=== PATIENT | male | born 1985 | race Native Hawaiian/Other Pacific Islander ===

== ENCOUNTER 2018-11-17 10:39 | Outpatient (CLI) | payer MEDICAID, SELFPAY ==
--- NOTE | 2018-11-17 10:45 | DI.RAD_ITS ---
SYMPTOMS/DIAGNOSIS: LT KNEE PAIN FOLLOWING INJURY 2 MONTHS AGO LEFT KNEE: Three views. No acute or healing fracture or dislocation is seen. There is a small suprapatellar joint effusion. IMPRESSION: No acute or healing fracture or dislocation.
== END 2018-11-17 10:59 ==
PROVIDERS: PCP Family Medicine; Visit Provider Physician Assistant
DX: M25.562 Pain in left knee (principal); M25.462 Effusion, left knee
CPT/HCPCS: 73562

== ENCOUNTER 2019-02-11 17:51 | Outpatient (REF) | payer MEDICAID, SELFPAY ==
[2019-02-11 19:42] LABS: ALT 354 U/L (16-63); AST 133 U/L (15-37); Alkaline Phosphatase 132 U/L (46-116); Anion Gap 12.1 mmol/L (3-11); BUN 12 mg/dL (7-18); Bilirubin, Total 0.5 mg/dL (0.2-1.0); CO2 24.9 mmol/L (21.0-32.0); CREATININE 1.23 mg/dL (0.70-1.30); Calcium 8.9 mg/dL (8.5-10.1); Calculated LDL 94 mg/dL; Chloride 105 mmol/L (98-107); Cholesterol 174 mg/dL (50-200); Glucose 143 mg/dL (70-100); HDL Cholesterol 26 mg/dL (40-60); Potassium 3.8 mmol/L (3.5-5.1); Sodium 142 mmol/L (136-145); Total Protein 7.6 g/dL (6.4-8.2); Triglyceride 272 mg/dL (30-150)
[2019-02-11 20:28] LABS: Hemoglobin A1C 7.1 % (4.5-6.2)
== END 2019-02-11 18:11 ==
LOC: NCHCN 17:51
PROVIDERS: Visit Provider Family Medicine
DX: R73.9 Hyperglycemia, unspecified (principal); Z68.41 Body mass index [BMI] 40.0-44.9, adult
CPT/HCPCS: 80053; 80061; 83036

== ENCOUNTER 2019-04-01 07:10 | Emergency (ER) | payer MEDICAID, SELFPAY ==
[2019-04-01 07:15] VITALS: BP 125/69; PULSE 53; RESP 16; TEMP 36.4; O2SAT 97
--- NOTE | 2019-04-01 07:54 | ED.GENADUL_ITS ---
Discharge Plan Disposition Patient Disposition: HOME Condition: Stable Discharge Details Chief Complaint: Laceration Clinical Impression: Laceration of hand, right Primary Care Provider: Daniele De La Rosa ED Provider: Marcelo Martínez Home Meds and New Rx's Prescriptions: No Action metformin 500 mg Tablet,Er Sohan.Retention 24 Hr 500 mg PO BID RF: 0 Discharge Instructions Instructions: Laceration (ED) Additional Instructions: return in 7-10 days to have the wound evaluated for possible suture removal if you have yellow/white discharge from the wound and/or redness spreading down the finger return to the emergency department Medical Decision Making Patient states he cut his right pinky on a nail this morning, did not fall or sustain other injuries and states has had tetanus vaccine within 5 years. He has a 3cm laceration that runs vertically along the lateral surface of the right pinky just distal to the mcp joint and past the pip joint. Has full rom at all joints of the finger and intact sensation so doubt nerve or vascular injury. Will close with sutures Differential Diagnosis Differential Diagnosis: laceration, abrasion HPI General Mode of arrival: ambulatory . Date/Time Provider Initiated Documentation: 04/01/19 07:49 . Limitations to Documentation: no limitations . Information obtained by: patient . History of Present Illness 33 year old M presents to the emergency department with the chief complaint of right pinky injury, described as moderate, Quality is described as aching, and is localized to the right and upper extremity. Patient reports no radiation. Patient started experiencing this hour(s) (1) and it has been constant. No relieving factors improve symptom(s), No exacerbating factors reported . Patient notes no other symptoms.. Related Data Home Medications Medication Instructions Recorded Confirmed metformin 500 mg PO BID 04/01/19 04/01/19 Allergies Allergy/AdvReac Type Severity Reaction Status Date / Time No Known Allergies Allergy Verified 04/01/19 07:18 General Stated Complaint: Laceration KETURAH: 4 Review of Systems Review of Systems ROS Unobtainable: All systems reviewed & are unremarkable except as noted in HPI and below Constitutional Constitutional: Denies chills, Denies fever(s) and Denies weakness Cardiovascular Cardiovascular: Denies chest pain and Denies dyspnea Respiratory Respiratory: Denies cough and Denies dyspnea Gastrointestinal Gastrointestinal: Denies abdominal pain, Denies nausea and Denies vomiting Musculoskeletal Musculoskeletal: Denies joint swelling Neurologic Neurologic: Denies weakness PFSH Social History Smoking/Tobacco Use Status: Never Alcohol Intake: current Substance use type: does not use Do you feel safe at home: Yes Do you feel safe in your relationship?: Yes Exam Const General: no acute distress Orientation: alert HENMT Head: normal to inspection Ears: external ears normal General nose exam: external nose normal Mouth: moist mucous membranes Eyes General: appearance normal, both eyes and all related structures Neck Neck: normal visual inspection Resp Effort & Inspection: normal respiratory effort and able to speak in complete sentences Cardio Rate: regular rate Skin General skin exam: no rashes or lesions noted Neuro General: alert and oriented x3 Extrem General: full ROM and normal capillary refill Psych Mental Status: mental status grossly normal Course Vital Signs Vital signs: Vital Signs Temperature 36.4 C L 04/01/19 07:15 Pulse 53 L 04/01/19 07:15 Respiratory Rate 16 04/01/19 07:15 Blood Pressure 125/69 04/01/19 07:15 Pulse Oximetry 97 04/01/19 07:15 Temperature 36.4 C L 04/01/19 07:15 Temperature Source Temporal Artery Scan 04/01/19 07:15 Pulse 53 L 04/01/19 07:15 Respiratory Rate 16 04/01/19 07:15 Respiratory Effort 04/01/19 07:15 Blood Pressure 125/69 04/01/19 07:15 Blood Pressure Position Sitting 04/01/19 07:15 Pulse Oximetry 97 04/01/19 07:15 Oxygen Delivery Method Room Air 04/01/19 07:15 Oxygen Flow Rate 0 04/01/19 07:15 Pain Level 8 04/01/19 07:15 Procedures Laceration Laceration 1: Site: hand Side (If applicable): right Size (cm): 3 Description: linear Depth: simple, single layer Local Anesthetic: Lidocaine 1% Amount of anesthesia used (mL): 5 Pre-repair: wound explored and irrigated extensively Skin layer closed with: nylon Size (cm): 5-0 Number of sutures: 4 Technique: simple, interrupted
== END 2019-04-01 08:29 | disposition home or self-care (01) ==
PROVIDERS: Emergency Provider Emergency Medicine; PCP Family Medicine
DX: S61.411A Laceration without foreign body of right hand, initial encounter (principal); W45.8XXA Other foreign body or object entering through skin, initial encounter
CPT/HCPCS: 12002

== ENCOUNTER 2019-05-05 18:10 | Outpatient (REF) | payer MEDICAID, SELFPAY ==
[2019-05-05 14:08] LABS: ALT 59 U/L (16-63); AST 27 U/L (15-37); Albumin 4.3 g/dL (3.4-5.0); Alkaline Phosphatase 75 U/L (46-116); Ferritin 102 ng/mL (26-388); Total Protein 7.6 g/dL (6.4-8.2)
[2019-05-05 14:23] LABS: Bilirubin, Direct 0.19 mg/dL (0.00-0.20)
[2019-05-06 10:33] LABS: Hepatitis B Surface Ag Negative (Negative)
[2019-05-06 11:15] LABS: Hepatitis C Ab w Rflx HCV PCR Negative (Negative)
== END 2019-05-05 18:30 ==
LOC: NCHCN 18:10
PROVIDERS: PCP Family Medicine; Visit Provider Family Medicine
DX: R74.8 Abnormal levels of other serum enzymes (principal); Z11.59 Encounter for screening for other viral diseases
CPT/HCPCS: 80076; 86803; 87340; 82728

== ENCOUNTER 2019-12-01 21:17 | Outpatient (REF) | payer MEDICAID, SELFPAY ==
[2019-12-01 19:47] LABS: HGB 14.8 g/dL (13.5-17.5); Mean Corp. HGB Concentration 34.4 g/dL (32.0-36.0); Platelet Count 292 x1000/uL (130-400); RBC 4.78 m/cumm (4.50-6.00); RBC Distribution Width 12.9 % (11.8-14.1); White Blood Cell Count 8.78 k/cumm (4.4-10.8)
[2019-12-01 20:17] LABS: TSH (W/Ref FT4) 1.05 uIU/mL (0.36-3.74)
[2019-12-01 20:57] LABS: Vitamin B12 849 pg/mL (193-986)
== END 2019-12-01 21:37 ==
LOC: NCHCN 21:17
PROVIDERS: PCP Family Medicine; Visit Provider Family Medicine
DX: R41.3 Other amnesia (principal); E11.9 Type 2 diabetes mellitus without complications; F32.9 Major depressive disorder, single episode, unspecified
CPT/HCPCS: 85027; 82565; 82607; 84443

== ENCOUNTER 2020-01-23 01:36 | Outpatient (CLI) | payer MEDICAID, SELFPAY ==
--- NOTE | 2020-01-23 | DI.MRI_ITS ---
EXAM: MR BRAIN WO CLINICAL HISTORY: MEMORY IMPAIRMENT,R41.3,PERSONALITY CHANGES TECHNIQUE: Multiplanar multisequence MRI of the brain was performed. COMPARISON: No exams were available for comparison FINDINGS: VENTRICLES AND EXTRA AXIAL SPACES: Normal in size and morphology for the patient's age. MIDLINE SHIFT: None. CEREBRAL PARENCHYMA: No focus of restricted diffusion to suggest acute infarct. No space-occupying le corey identified. HEMORRHAGE: None. BRAINSTEM/CEREBELLUM: Normal. CALVARIUM: Normal. VISUALIZED PARANASAL SINUSES/MASTOIDS:Clear. [place]: Normal flow void. PITUITARY GLAND: Unremarkable. OTHER FINDINGS: None. IMPRESSION: Unremarkable MRI of the brain. DATA REPOSITORY:
== END 2020-01-23 01:56 ==
PROVIDERS: PCP Family Medicine; Visit Provider Family Medicine
DX: R41.3 Other amnesia (principal); R46.89 Other symptoms and signs involving appearance and behavior
CPT/HCPCS: 70551

== ENCOUNTER 2020-11-26 17:30 | Outpatient (REF) | payer MEDICAID, SELFPAY ==
[2020-11-26 15:37] LABS: ALT 85 U/L (16-63); AST 33 U/L (15-37); Albumin 4.4 g/dL (3.4-5.0); Alkaline Phosphatase 86 U/L (46-116); Anion Gap 13.3 mmol/L (3-11); BUN 9 mg/dL (7-18); Bilirubin, Total 0.8 mg/dL (0.2-1.0); CO2 23.7 mmol/L (21.0-32.0); CREATININE 0.9 mg/dL (0.70-1.30); Calcium 9.5 mg/dL (8.5-10.1); Chloride 104 mmol/L (98-107); Glucose 113 mg/dL (74-106); Potassium 4.1 mmol/L (3.5-5.1); Sodium 141 mmol/L (136-145); Uric Acid 7.5 mg/dL (3.5-7.2)
[2020-11-27 10:28] LABS: HIV-1/2 Ag & Ab Screen Negative (Negative)
== END 2020-11-26 17:31 | disposition home or self-care (01) ==
LOC: NCHCN 17:30
PROVIDERS: PCP Family Medicine; Visit Provider Family Medicine
DX: M10.9 Gout, unspecified (principal); Z11.4 Encounter for screening for human immunodeficiency virus [HIV]; E11.9 Type 2 diabetes mellitus without complications
CPT/HCPCS: 80053; 87389; 84550

== ENCOUNTER 2021-01-11 15:53 | Outpatient (REF) | payer MEDICAID, SELFPAY ==
[2021-01-11 19:07] LABS: Uric Acid 6.2 mg/dL (3.5-7.2)
== END 2021-01-11 15:54 | disposition home or self-care (01) ==
LOC: NCHCN 15:53
PROVIDERS: PCP Family Medicine; Visit Provider Family Medicine
DX: M10.9 Gout, unspecified (principal)
CPT/HCPCS: 84550

== ENCOUNTER 2021-08-20 15:44 | Outpatient (REF) | payer MEDICAID, SELFPAY ==
[2021-08-20 19:24] LABS: Uric Acid 7.2 mg/dL (3.5-7.2)
== END 2021-08-20 15:45 | disposition home or self-care (01) ==
LOC: NCHCN 15:44
PROVIDERS: PCP Family Medicine; Visit Provider Family Medicine
DX: E11.9 Type 2 diabetes mellitus without complications (principal); M10.9 Gout, unspecified
CPT/HCPCS: 84550

== ENCOUNTER 2021-12-31 17:23 | Outpatient (REF) | payer MEDICAID, SELFPAY | END 2021-12-31 17:24 | disposition home or self-care (01) | LOC: NCHCN 17:23 | PROVIDERS: PCP Family Medicine; Visit Provider Family Medicine | DX: E11.9 Type 2 diabetes mellitus without complications (principal) | CPT/HCPCS: 82565 ==

== ENCOUNTER 2022-03-04 19:10 | Outpatient (REF) | payer MEDICAID, SELFPAY ==
[2022-03-04 19:25] LABS: Abs Immature Grans 0.03 10^3/uL (0.0-0.06); Absolute Basophil Count 0.07 10^3/uL (0.0-0.2); Absolute Eosinophil Count 0.21 10^3/uL (0.0-0.7); Absolute Monocyte Count 0.76 10^3/uL (0.1-0.8); Absolute Neutrophil Count 3.94 10^3/uL (1.2-6.7); Basophils % 0.9; Eosinophils % 2.8; HCT 43.1 % (40.0-50.0); HGB 14.8 g/dL (13.5-17.5); Immature Grans % 0.4; Lymphocytes % 32.4; MCH 30.5 pg (27.0-33.0); MCHC 34.3 % (32.0-36.0); MCV 89 fL (80-95); MPV 11.5 fL (8.0-11.0); Monocytes % 10.3; Neutrophils % 53.2; Platelet Count 316 10^3/uL (130-400); RBC 4.85 10^6/uL (4.36-5.78); RDW 12.1 % (11.8-14.1); RDW-SD 39.7 fL; WBC 7.41 10^3/uL (4.4-10.8)
[2022-03-04 19:54] LABS: ALT 150 U/L (16-63); AST 68 U/L (15-37); Albumin 4.5 g/dL (3.4-5.0); Alkaline Phosphatase 81 U/L (46-116); Bilirubin, Direct 0.1 mg/dL (0.0-0.2); Bilirubin, Total 0.8 mg/dL (0.2-1.0); C-Reactive Protein 0.12 mg/dL (0.0-0.3); TSH (W/Ref FT4) 1.78 uIU/mL (0.36-3.74); Total Protein 7.9 g/dL (6.4-8.2)
[2022-03-06 10:02] LABS: Lyme Ab w Rflx to Lyme Confirm Negative (Negative)
== END 2022-03-04 19:11 | disposition home or self-care (01) ==
LOC: NCHCN 19:10
PROVIDERS: PCP Family Medicine; Visit Provider Family Medicine
DX: R61 Generalized hyperhidrosis (principal); R74.8 Abnormal levels of other serum enzymes
CPT/HCPCS: 80076; 84443; 85025; 86140; 86618